=== PATIENT | male | born 1940 | race Caucasian/White ===

== ENCOUNTER 2023-03-15 13:54 | Outpatient (CLI) | payer MEDICARE, OTHER ==
--- NOTE | 2023-03-16 15:01 | MRI Report ---
PROCEDURE: Brain WO INDICATIONS: OTHER AMNESIA TECHNIQUE: Noncontrast axial T1 spin echo, axial T2 fast spin echo, sagittal and axial FLAIR, coronal T2 fast sp in echo, axial gradient echo, axial diffusion and ADC through the brain. COMPARISON: None. FINDINGS: Image quality: Excellent. CSF Spaces: Basal cisterns are patent. No extra-axial fluid collections. Ventricles are normal in size and shape. Brain: No intracranial masses or hemorrhage. Beckett/white matter interface is normal. Brainstem appe ars normal. Diffusion-weighted images demonstrate no acute ischemic insult. Age-related global volu me loss and chronic microvascular ischemic changes are present. No chronic ischemic insults. Normal intravascular flow voids are present. Skull and face: Calvarium has normal marrow signal. Bilateral lens replacements. The orbits are oth erwise normal in appearance. Sinuses: Mild diffuse paranasal sinus mucosal thickening. Small right and trace left mastoid effusion s. IMPRESSION: 1.No cause for patient's symptoms is identified. 2.No acute intracranial abnormalities. 3.Age-related volume loss and chronic microvascular ischemic change. Reviewed by: Lev Adan MD on 03/16/2023 3:00 PM PST Approved by: Lev Adan MD on 03/16/2023 3:00 PM PST Station ID: [id number]
== END 2023-03-15 13:55 | disposition home or self-care (01) ==
LOC: DI 13:54
PROVIDERS: ATTEND Nurse Practitioner Family
DX: R41.3 Other amnesia (principal); G31.89 Other specified degenerative diseases of nervous system; I67.82 Cerebral ischemia